=== PATIENT | male | born 1945 | race Caucasian/White ===

== ENCOUNTER 2016-08-21 07:18 | Inpatient (IN) | payer OTHER ==
[~2016-08-21] VITALS: Ht 170.2 cm; Wt 94.8 kg
[~2016-08-21 07:18] MED LIST: AMLO-313 PO; CARV12.548 PO; GLU500 PO; HYDR12.55 PO; LIP20 PO; TAMS-11 PO
[2016-08-21] MEDS ORDERED: TRANEXAMIC ACID 1,000 MG/10 ML VIAL IV ONE ×2 (08:00→14:00)
[2016-08-21] MEDS ORDERED: CEFAZOLIN SOD 2 GM in D5W 50 ML IV ONE (08:30)
[2016-08-21] MEDS ORDERED: GABAPENTIN 300 MG CAPSULE PO ONE (08:30)
[2016-08-21] MEDS ORDERED: CELECOXIB 100 MG CAPSULE PO ONE (08:30)
[2016-08-21] MEDS ORDERED: CELECOXIB 200 MG CAPSULE PO ONE (08:30)
[2016-08-21] MEDS ORDERED: ACETAMINOPHEN 500 MG TABLET PO ONE (08:30)
[2016-08-21] MEDS ORDERED: PROMETHAZINE HCL 25 MG/ML AMP IVP PRN (09:15)
[2016-08-21] MEDS ORDERED: MORPHINE 4 MG/ML INJ. SYRINGE IVP PRN (09:15)
[2016-08-21] MEDS ORDERED: ONDANSETRON HCL 4 MG/2 ML VIAL IVP PRN (09:15)
[2016-08-21] MEDS ORDERED: oxyCODONE HCL 5 MG TABLET PO PRN (09:15)
[2016-08-21] MEDS ORDERED: D5NS 1,000 ML IV SCH (09:15)
[2016-08-21] MEDS ORDERED: SENNOSIDES 8.6 MG TABLET PO PRN (09:15)
[2016-08-21] MEDS ORDERED: DIPHENHYDRAMINE HCL 50 MG CAPSULE PO PRN (09:15)
[2016-08-21] MEDS ORDERED: POLYMYXIN 500,000/BACIT.10,000 UNITS in NS IRR 1 L IR ONE (09:25)
[2016-08-21] MEDS ORDERED: LR 1,000 ML IV SCH (10:53)
[2016-08-21] MEDS ORDERED: HYDROmorphone 2 MG/ML VIAL IVP PRN (11:00)
[2016-08-21] MEDS ORDERED: HYDROmorphone 1 MG INJ. 1 MG/ML AMPUL IVP PRN ×2 (11:00)
[2016-08-21] MEDS ORDERED: METOCLOPRAMIDE HCL 10 MG/2 ML VIAL IVP PRN (11:00)
[2016-08-21] MEDS ORDERED: ROPIVACAINE 0.2% (NAROPIN) PF SOLUTION 100 ML BOTTLE INJ ONE (12:00)
[2016-08-21 13:30] VITALS: BP 149/80; PULSE 75; RESP 16; RESP 20; TEMP 97.3; O2SAT 97
[2016-08-21] MEDS ORDERED: CEFAZOLIN 2 GM IVPB PREMIX 50 ML IV ONE (14:00)
[2016-08-21] MEDS ORDERED: ROCURONIUM BROMIDE 10 MG/ML (ZEMURON) ONE (14:00)
[2016-08-21] MEDS ORDERED: EPINEPHrine 1 MG/ML AMP ONE (14:00)
[2016-08-21] MEDS ORDERED: KETOROLAC TROMETHAMINE 60 MG/2 ML VIAL IM ONE (14:00)
[2016-08-21] MEDS ORDERED: SEVOFLURANE 15 MIN GAS INH ONE (14:00)
[2016-08-21] MEDS ORDERED: LR 1,000 ML IV.SOLN IV ONE (14:00)
[2016-08-21] MEDS ORDERED: MORPHINE SULFATE 10MG/10ML PF AMP ONE (14:00)
[2016-08-21] MEDS ORDERED: NS 50 ML BAG IV ONE (14:00)
[2016-08-21] MEDS: ACETAMINOPHEN 500 MG TABLET PO SCH ×2 (14:00→21:19)
[2016-08-21] MEDS ORDERED: NORMAL SALINE 10 ML VIAL ONE (14:00)
[2016-08-21] MEDS ORDERED: PROPOFOL 200MG/ 20ML VIAL (DIPRIVAN) IV ONE (14:00)
[2016-08-21] MEDS ORDERED: ONDANSETRON HCL 4 MG/2 ML VIAL ONE (14:00)
[2016-08-21] MEDS ORDERED: ROPIVACAINE HCL/PF 5 MG/ML 0.5% 30 ML VIAL ONE (14:00)
[2016-08-21] MEDS ORDERED: MIDAZOLAM HCL 5 MG/5 ML VIAL ONE (14:00)
[2016-08-21] MEDS ORDERED: fentaNYL CITRATE/PF 100 MCG/2 ML AMP ONE (14:00)
[2016-08-21] MEDS: NACL 0.9% 1,000 ML IV SCH ×2 (14:32→23:11)
[2016-08-21] MEDS: KETOROLAC TROMETHAMINE 30 MG VIAL IVP SCH ×3 (14:32→23:14)
[2016-08-21] MEDS: CEFAZOLIN 1 GM IVPB PREMIX 50 ML IV SCH ×2 (14:41→21:18)
[2016-08-21] MEDS: RIVAROXABAN 10 MG TABLET PO SCH (17:40)
[2016-08-21 20:00] VITALS: BP 148/96; PULSE 74; RESP 17; TEMP 97.4; O2SAT 94
[2016-08-21] MEDS: GABAPENTIN 300 MG CAPSULE PO SCH (21:18)
[2016-08-21] MEDS: CELECOXIB 200 MG CAPSULE PO SCH (21:19)
[2016-08-21] MEDS: CARVEDILOL 12.5 MG TABLET (COREG) PO SCH (21:20)
[2016-08-22] VITALS (7 sets, daily range): BP systolic 122–146; BP diastolic 66–85; PULSE 53–87; RESP 16–18; TEMP 97.5–99; O2SAT 93–96; Ht 170.2 cm; Wt 94.8 kg
[2016-08-22] MEDS: NACL 0.9% 1,000 ML IV SCH ×3 (05:15→19:42)
[2016-08-22] MEDS: CEFAZOLIN 1 GM IVPB PREMIX 50 ML IV SCH (05:15)
[2016-08-22] MEDS: ACETAMINOPHEN 500 MG TABLET PO SCH ×3 (05:16→21:16)
[2016-08-22] MEDS: KETOROLAC TROMETHAMINE 30 MG VIAL IVP SCH ×4 (06:24→23:01)
[2016-08-22 06:42] LABS: ANION GAP 6 (5-15); CALCIUM 8.2 mg/dL (8.4-11.0); CHLORIDE 107 mmol/L (98-107); CREATININE 1.18 mg/dL (0.55-1.30); GLUCOSE 109 mg/dL (70-99); POTASSIUM 3.2 mmol/L (3.5-5.1); SODIUM SERUM 142 mmol/L (136-145); UREA NITROGEN, BLOOD 11 mg/dL (8-21)
[2016-08-22 06:48] LABS: BASOPHILS % (AUTO) 0.1 % (0.0-2.0); EOSINOPHILS # (AUTO) 0.1 K/uL (0.0-0.4); EOSINOPHILS % (AUTO) 0.7 % (0.0-4.0); HEMATOCRIT 38.7 % (36-54); HEMOGLOBIN 12.3 g/dL (14.0-18.0); LYMPHOCYTES # (AUTO) 2.4 K/uL (1.0-5.5); LYMPHOCYTES % (AUTO) 21.3 % (20.5-51.5); MEAN CORPUSCULAR HEMOGLOBIN 24 pg (27-31); MEAN CORPUSCULAR HGB CONC 32 % (32-36); MEAN CORPUSCULAR VOLUME 74 fL (79.0-98.0); MONOCYTES # (AUTO) 1.2 K/uL (0.0-1.0); MONOCYTES % (AUTO) 10.4 % (1.7-9.3); NEUTROPHILS # (AUTO) 7.5 K/uL (1.8-7.7); NEUTROPHILS % (AUTO) 67.5 % (40.0-70.0); PLATELET COUNT (AUTO) 177 K/uL (130-430); RED BLOOD CELL COUNT(AUTO) 5.22 MIL/uL (4.2-6.2); WHITE BLOOD COUNT (AUTO) 11.2 K/uL (4.8-10.8)
[2016-08-22] MEDS ORDERED: POTASSIUM CHLORIDE 20 MEQ/PKT PACKET PO ONE (08:15)
[2016-08-22] MEDS: metFORMIN HCL 500 MG TABLET PO SCH (08:29)
[2016-08-22] MEDS: ATORVASTATIN 10 MG TABLET PO SCH (08:29)
[2016-08-22] MEDS: CELECOXIB 200 MG CAPSULE PO SCH ×2 (08:29→21:16)
[2016-08-22] MEDS: TAMSULOSIN HCL 0.4 MG CAP PO SCH (08:30)
[2016-08-22] MEDS: CARVEDILOL 12.5 MG TABLET (COREG) PO SCH ×2 (08:34→21:20)
[2016-08-22] MEDS: amLODIPine BESYLATE 10 MG TABLET PO SCH (08:35)
[2016-08-22] MEDS ORDERED: ATORVASTATIN 20 MG TABLET PO SCH ×2 (09:00)
[2016-08-22] MEDS ORDERED: AMLODIPINE PO SCH (09:00)
[2016-08-22] MEDS ORDERED: ATORVASTATIN PO SCH (09:00)
[2016-08-22] MEDS ORDERED: [UNRECOGNIZED DRUG - OTHER] PO SCH (09:00)
[2016-08-22] MEDS: RIVAROXABAN 10 MG TABLET PO SCH (17:36)
[2016-08-22] MEDS: GABAPENTIN 300 MG CAPSULE PO SCH (21:17)
[2016-08-23 00:46] VITALS: BP 129/52; PULSE 78; RESP 18; TEMP 98.3; O2SAT 92
[2016-08-23 04:13] VITALS: BP 135/73; PULSE 68; RESP 18; TEMP 97.3; O2SAT 94
[2016-08-23 06:10] LABS: ANION GAP 3 (5-15); CALCIUM 8.4 mg/dL (8.4-11.0); CHLORIDE 110 mmol/L (98-107); CREATININE 1.21 mg/dL (0.55-1.30); GLUCOSE 125 mg/dL (70-99); POTASSIUM 3.5 mmol/L (3.5-5.1); SODIUM SERUM 142 mmol/L (136-145); UREA NITROGEN, BLOOD 11 mg/dL (8-21)
[2016-08-23 06:26] LABS: BASOPHILS % (AUTO) 0.3 % (0.0-2.0); EOSINOPHILS # (AUTO) 0.2 K/uL (0.0-0.4); HEMATOCRIT 35.8 % (36-54); HEMOGLOBIN 11.4 g/dL (14.0-18.0); LYMPHOCYTES # (AUTO) 2.3 K/uL (1.0-5.5); LYMPHOCYTES % (AUTO) 19.5 % (20.5-51.5); MEAN CORPUSCULAR HEMOGLOBIN 23 pg (27-31); MEAN CORPUSCULAR HGB CONC 32 % (32-36); MEAN CORPUSCULAR VOLUME 73 fL (79.0-98.0); MONOCYTES # (AUTO) 1.5 K/uL (0.0-1.0); MONOCYTES % (AUTO) 12.5 % (1.7-9.3); NEUTROPHILS % (AUTO) 65.7 % (40.0-70.0); PLATELET COUNT (AUTO) 159 K/uL (130-430); RED BLOOD CELL COUNT(AUTO) 4.88 MIL/uL (4.2-6.2); RED CELL DISTRIBUTION WIDTH 15.1 % (9.0-15.0)
[2016-08-23] MEDS: ACETAMINOPHEN 500 MG TABLET PO SCH ×3 (06:29→20:57)
[2016-08-23] MEDS: KETOROLAC TROMETHAMINE 30 MG VIAL IVP SCH ×4 (06:30→23:38)
[2016-08-23] MEDS: NACL 0.9% 1,000 ML IV SCH ×2 (06:35→21:00)
[2016-08-23] MEDS: CARVEDILOL 12.5 MG TABLET (COREG) PO SCH ×2 (08:16→21:00)
[2016-08-23] MEDS: CELECOXIB 200 MG CAPSULE PO SCH ×3 (08:16→21:00)
[2016-08-23] MEDS: ATORVASTATIN 10 MG TABLET PO SCH (08:17)
[2016-08-23] MEDS: TAMSULOSIN HCL 0.4 MG CAP PO SCH (08:17)
[2016-08-23] MEDS: amLODIPine BESYLATE 10 MG TABLET PO SCH (08:17)
[2016-08-23] MEDS: metFORMIN HCL 500 MG TABLET PO SCH (08:17)
[2016-08-23 12:00] VITALS: BP 150/79; PULSE 78; RESP 20; TEMP 98.3; O2SAT 95
[2016-08-23 16:00] VITALS: BP 131/72; PULSE 80; RESP 21; TEMP 99; O2SAT 95
[2016-08-23] MEDS: RIVAROXABAN 10 MG TABLET PO SCH (17:59)
[2016-08-23 19:50] VITALS: BP 145/81; PULSE 78; RESP 20; TEMP 98.6; O2SAT 96
[2016-08-23] MEDS: GABAPENTIN 300 MG CAPSULE PO SCH (20:57)
[2016-08-24 00:56] VITALS: BP 154/84; PULSE 83; RESP 18; TEMP 98.8; O2SAT 93
[2016-08-24 04:00] VITALS: BP 127/60; PULSE 78; RESP 18; TEMP 98.8; O2SAT 95
[2016-08-24] MEDS: ACETAMINOPHEN 500 MG TABLET PO SCH (05:15)
[2016-08-24] MEDS: KETOROLAC TROMETHAMINE 30 MG VIAL IVP SCH ×2 (05:15→11:13)
[2016-08-24] MEDS: NACL 0.9% 1,000 ML IV SCH (05:16)
[2016-08-24 06:13] LABS: ANION GAP 3 (5-15); CALCIUM 8.4 mg/dL (8.4-11.0); CHLORIDE 110 mmol/L (98-107); CREATININE 1.13 mg/dL (0.55-1.30); GLUCOSE 117 mg/dL (70-99); POTASSIUM 3.2 mmol/L (3.5-5.1); SODIUM SERUM 143 mmol/L (136-145); UREA NITROGEN, BLOOD 8 mg/dL (8-21)
[2016-08-24 06:26] LABS: BASOPHILS % (AUTO) 0.3 % (0.0-2.0); EOSINOPHILS # (AUTO) 0.3 K/uL (0.0-0.4); EOSINOPHILS % (AUTO) 2.5 % (0.0-4.0); HEMATOCRIT 33.9 % (36-54); HEMOGLOBIN 10.7 g/dL (14.0-18.0); LYMPHOCYTES # (AUTO) 2.2 K/uL (1.0-5.5); LYMPHOCYTES % (AUTO) 18.8 % (20.5-51.5); MEAN CORPUSCULAR HEMOGLOBIN 23 pg (27-31); MEAN CORPUSCULAR HGB CONC 32 % (32-36); MEAN CORPUSCULAR VOLUME 74 fL (79.0-98.0); MONOCYTES # (AUTO) 1.2 K/uL (0.0-1.0); MONOCYTES % (AUTO) 10.5 % (1.7-9.3); NEUTROPHILS # (AUTO) 8.1 K/uL (1.8-7.7); NEUTROPHILS % (AUTO) 67.9 % (40.0-70.0); PLATELET COUNT (AUTO) 158 K/uL (130-430); RED BLOOD CELL COUNT(AUTO) 4.61 MIL/uL (4.2-6.2); RED CELL DISTRIBUTION WIDTH 15.4 % (9.0-15.0); WHITE BLOOD COUNT (AUTO) 11.8 K/uL (4.8-10.8)
[2016-08-24 07:33] VITALS: BP 145/97; PULSE 77; RESP 18; TEMP 98.6; O2SAT 97
[2016-08-24] MEDS: CELECOXIB 200 MG CAPSULE PO SCH (08:41)
[2016-08-24] MEDS: amLODIPine BESYLATE 10 MG TABLET PO SCH (08:41)
[2016-08-24] MEDS: metFORMIN HCL 500 MG TABLET PO SCH (08:41)
[2016-08-24] MEDS: TAMSULOSIN HCL 0.4 MG CAP PO SCH (08:42)
[2016-08-24] MEDS: ATORVASTATIN 10 MG TABLET PO SCH (08:42)
[2016-08-24] MEDS: CARVEDILOL 12.5 MG TABLET (COREG) PO SCH (08:42)
[2016-08-24] MEDS ORDERED: POTASSIUM CHLORIDE 20 MEQ/PKT PACKET PO ONE (10:45)
[2016-08-24 12:26] VITALS: BP 124/80; PULSE 74; RESP 17; TEMP 98.6; O2SAT 98
[2016-08-24 13:01] VITALS: BP 124/80; PULSE 74; RESP 17; TEMP 98.6; O2SAT 98
== END 2016-08-24 12:50 | disposition home or self-care (01) | DRG 470 ==
LOC: SMU 07:18 → STU 13:51 → SMU 08-22 08:49
PROVIDERS: ADMIT Orthopaedic Surgery; ATTEND Orthopaedic Surgery
PROC: 0SRC0J9 Replacement of Right Knee Joint with Synthetic Substitute, Cemented, Open Approach (ICD-10-PCS; principal; 2016-08-21 09:30)
DX: M17.11 Unilateral primary osteoarthritis, right knee (principal); E11.9 Type 2 diabetes mellitus without complications; I10 Essential (primary) hypertension
CPT/HCPCS: 36415; 80048; 82962; 85025; 87081; 88305; 88311; 97039; 97110-GP; 97116-GP; 97530-GP; C1713; C1776; J0171; J0690; J1885; J2250; J2270; J2274; J2405; J2550; J2704; J2795; J3010; J3490; J7030; J7060; J7120